=== PATIENT | female | born 1975 | race Caucasian/White ===

== ENCOUNTER → 2017-06-24 09:41 | Outpatient (CLI) | payer OTHER, SELFPAY ==
--- NOTE | 2017-06-24 09:45 | HPBI_ITS ---
MAMMOGRAPHY - BILATERAL SCREENING REASON FOR EXAM: Female, 41 years old. Routine annual screening examination. PERTINENT HISTORY: Grandmother with breast cancer. Aunt with breast cancer. TECHNIQUE: Digital bilateral breast loan (3D mammographic acquisition) in the CC and MLO projections. 2-D mediolateral oblique (MLO) and craniocaudad (CC) views of both breasts were obtained. CAD: Full Field Digital Mammography with Computer Added Detection was performed. COMPARISON: Comparison is made with prior outside examination dated June 06, 2016. FINDINGS: Breast Composition: The breasts are heterogeneously dense, which may obscure small masses. There are no dominant masses or suspicious calcifications. No other significant abnormalities are identified. There has been no significant change since the prior study. HPBI/SCREENING MAMM (CAD), BILAT IMPRESSION: Stable bilateral screening mammogram. Yearly follow-up mammogram recommended. (A) ASSESSMENT CATEGORY: BIRADS Category 1: Negative. A letter regarding these results will be sent to the patient by the facility within 30 days. Approximately 10% of breast cancers are not detected by mammography. A normal mammogram should not delay biopsy of a clinically suspicious abnormality. [id number] Electronically Signed: Jason Davila MD at 8:20 EDT Tel [phone], Service support ,
== END ==
PROVIDERS: Family Provider Family Medicine; PCP Family Medicine; Visit Provider Obstetrics & Gynecology
DX: Z12.31 Encounter for screening mammogram for malignant neoplasm of breast (principal)
CPT/HCPCS: 77063; 77067

== ENCOUNTER → 2018-03-17 10:55 | Outpatient (CLI) | payer OTHER, SELFPAY ==
[2017-10-28 10:52] VITALS: BMI 22.8
--- OUTSIDE RECORDS SUMMARY | 2018-05-11 19:50 | XMS RPT_ITS ---
:1975 Author Organization [facility] Care Team Providers Name Role Phone Kelsey Myrick Attending Unavailable Asad Joseph III Referring Unavailable Kelsey Myrick Attending Unavailable Asad Joseph III Primary Care Unavailable Rosario Vargas Attending Unavailable Asad Joseph III Referring Unavailable Reggie Sexton Attending Unavailable Reggie Sexton Referring Unavailable Asad Joseph III Primary Care Unavailable PROBLEMS PROBLEMS No Problem Records FoundPROCEDURES PROCEDURES No Procedure Records FoundRESULTS RESULTS Observed: 03/17/2018 Status: F Source: [place] CULTURE, [place] 9:[place] [facility] [place] PER REQ, PLEASE CALL RESULTS TO [phone] AND FAX RESULTS TO [phone] Culture, Throat Mixed normal throat saurabh. No Streptococcus pneumoniae, beta-hemolytic Streptococcus or Staphylococcus aureus isolated. Performed By: #### M100.1000 #### [facility] [address] [place], [place], [id number] URGENT CARE VISIT Observed: 10/28/2017 Status: F Source: [place] RE[place] 11:58 AM [facility] [place] [facility] [address] [place] [address] [address] [place], [place] [address] OFFICE VISIT Date of Service: 10/28/17 MR#: [id number] Acct: [id number] Name: OLIVER LOPEZ Renuka Rep #: [id number] : 1975 Provider: BOBBI Vargas Age/Sex: 41/F Location: [facility] Status: Signed Intake Vital Signs10/28/17 Height 5 ft 8 in 10/28/17 Weight: 150 lb 10/28/17 Body Mass Index (BMI) 22.8 10/28/17 Blood Pressure 110/64 Intake Visit Reasons: RASH ON CHEST AND BACK Chief Complaint: Rash on chest ater hot tub Wrist Closer Required: No Is patient in pain?: No Allergies Penicillins Allergy (Verified 10/28/17 10:53) Hives Sulfa (Sulfonamide Antibiotics) Allergy (Verified 10/28/17 10:53) Hives Medications Ascorbic Acid [Vitamin C] 500 mg PO DAILY 06/11/15 [History Confirmed 10/28/17] Montelukast [Singulair] 10 mg PO DAILY 06/11/15 [History Confirmed 10/28/17] Estradiol [Vivelle-Dot] 0.0375 mg pe TD DAILY #8 patch.tdsw 07/17/15 [Rx Confirmed 10/28/17] PFSH Surgical History History of hysterectomy (Acute) History of tonsillectomy (Acute) Family History Sister Thyroid cancer Aunt Breast cancer Social History Smoking Status: Never smoker alcohol intake: current alcohol intake frequency: a few times a week Alcohol type: wine HPI HPI Chief Complaint: Rash on chest ater hot tub Details: OLIVER OLPEZ, is a 41 F who presents to the office today for very itchy rash mainly on her anterior chest, though a few bumps on back as well that started after 2 days of using her neighbors hot tub. There is no drainage or crusting off the rash. No pain, just itching. She stopped using lavender lotion and sunscreen (both she had used before witthout problem), but the rash continued to worsen. She has taken Bennadryl at night for the itchig. Hot showers and heat/sunshine make it worse. No fever or chills. She states about 15 years ago she required a prescription cream for a similar rash after using a hot tub. She generally avoids them because of that. ROS Const Constitutional: No body ache, chills, fatigue, fever(s), night sweats, change in appetite, weakness, frequent falls, headache(s) or excessive sweating Eyes Eyes: No visual disturbances, light sensitivity, eye pain or change in vision ENT ENT: No ear pain, ear discharge, hearing loss, dizziness/vertigo, nasal discharge, difficulty swallowing, sore throat, neck pain or headache(s) Resp Respiratory: No cough, chest congestion, hemoptysis, shortness of breath or wheezing Cardio Cardiology: No shortness of breath, irregular heart rhythm, lightheadedness, chest pain at rest, chest pain with exertion, generalized swelling, orthopnea, palpitations or excessive sweating Gastro GI: No difficulty swallowing, abdominal pain, bloating, change in bowel habits, diarrhea, nausea/dyspepsia or vomiting Genitourinary-Female: No burning urination, urinary frequency, urinary urgency, blood in urine or Vaginal Itching Musc Musculoskeletal: No joint pain, back pain, numbness, tingling or neck pain Skin Skin: Positive for rash (see HPI); no lesions or itching Neuro Neurology: No visual disturbances, numbness, tingling, abnormal speech, confusion, unsteady gait/balance, dizziness, weakness, frequent falls, loss of vision or headache(s) Psych Psychiatric: No change in appetite, No confusion, No anxiety Endo Endocrine: No fatigue, cold intolerance, excessive sweating, flushing, heat intolerance or increased thirst/drinking Aller/Imm Allergy/Immunologic: No wheezing, itchy eyes, food intolerance, seasonal allergy symptoms or hives Kalen/Lymp Hematologic/Lymphatic: No easy bruising Exam Const General: cooperative, no acute distress, healthy appearing Nutritional Appearance: average body habitus Orientation: alert, oriented x3 HENDE Head: normal to inspection, normocephalic Ears: hearing grossly normal bilaterally, external ears normal Nose: nasal mucous membranes and turbinates normal, no nasal discharge Face and sinus: normal facial exam, sinuses nontender Mouth: oral mucosae normal, oropharynx normal, tongue normal Teeth and gingiva: dentition normal, gingiva normal Throat: posterior oropharynx normal Eyes General: appearance normal, both eyes and all related structures Eyelids: eyelids normal Conjunctivae: conjunctivae normal Sclera: sclerae normal EOM: EOM intact bilaterally Direct ophthalmoscopy: normal light reflex, no photophobia Neck Neck: normal visual inspection, full ROM, no meningeal signs, trachea midline, supple, no lymphadenopathy Neck mass: No Thyroid: thyroid normal Carotids: no bruits Lymphatic: no lymphadenopathy noted Chest Chest palpation AND inspection: normal inspection of the chest Resp Effort AND Inspection: normal respiratory effort, able to speak in complete sentences, symmetric chest movement, no audible wheezes, no cough, not labored, no respiratory distress Auscultation: Bilateral: Clear to Auscultation Cardio Rate: regular rate Rhythm: regular rhythm Heart Sounds: S1 normal, S2 normal GI Inspection: normal to inspection Auscultation: normal bowel sounds Palpation: soft, no hepatosplenomegaly, no pulsatile masses, other (no rash on abdomen) Musc Musculoskeletal: No joint tenderness Skin General: other Rashes: rashes noted (papular rash in follicular distribution noted upperr and mid anterior chest) Other: No crusting or drainage from rash. 5 or 6 erythematous papules noted on her back which she states the back has markedly improved, but the anterior chest keeps worsening. Neuro General: alert, oriented x3, moves all extremities Speech: speech normal Extrem General: normal to inspection Psych Appearance: grossly normal, well kempt Mental Status: mental status grossly normal Affect: normal affect Speech and Movement: speech and movement normal Attitude: cooperative Thought Process: normal Thought Content: normal Judgment: judgment good Assessment AND Plan Problems 1. Hot tub folliculitis L73.8 Plan Bactroban called to [facility] to apply bid x 10 days. F/u with PCP if symptoms persist. Coding Level of Care Code Off vis,new,level 3 Diagnoses Hot tub folliculitis L73.8 10/28/17 1158 <Electronically signed by Rosario MARTINES> Date Rosario MARTINES Cosigner Signature: Date (if applicable) CC: SCREENING MAMM (CAD), Observed: 06/24/2017 Status: F Source: [facility] 9:[facility] AM [facility] [place] [facility] [address] [place] [address] SCREENING MAMM (CAD), [facility] MR#: [id number] Acct: [id number] Name: OLIVER LOPEZ Rep #: [id number] : 1975 F 41 From: Jason Davila MD PCP: Asad Joseph III, MD Status: REG CLI Study: SCREENING MAMM (CAD), [facility] Date of Exam: 06/24/17 Exam# [id number] Ordering Dr: Kelsey Myrick MD MAMMOGRAPHY - BILATERAL SCREENING REASON FOR EXAM: Female, 41 years old. Routine annual screening examination. PERTINENT HISTORY: Grandmother with breast cancer. Aunt with breast cancer. TECHNIQUE: Digital bilateral breast loan (3D mammographic acquisition) in the CC and MLO projections. 2-D mediolateral oblique (MLO) and craniocaudad (CC) views of both breasts were obtained. CAD: Full Field Digital Mammography with Computer Added Detection was performed. COMPARISON: Comparison is made with prior outside examination dated June 06, 2016. FINDINGS: Breast Composition: The breasts are heterogeneously dense, which may obscure small masses. There are no dominant masses or suspicious calcifications. No other significant abnormalities are identified. There has been no significant change since the prior study. HPBI/SCREENING MAMM (CAD), BILAT IMPRESSION: Stable bilateral screening mammogram. Yearly follow-up mammogram recommended. (A) ASSESSMENT CATEGORY: BIRADS Category 1: Negative. A letter regarding these results will be sent to the patient by the facility within 30 days. Approximately 10% of breast cancers are not detected by mammography. A normal mammogram should not delay biopsy of a clinically suspicious abnormality. [id number] Electronically Signed: Jason Davila MD at 8:20 EDT Tel [phone], Service support , CC: Asad Joseph III, MD; Kelsey Myrick MD Retail Marketing Specialist: Signed ALLERGIES ALLERGIES DATE TYPE / CODE NAME / CODE REACTION SEVERITY SOURCE 04/02/2018 Drug Penicillins/F Hives Unknown [facility] Allergy/4160 [id number](RXN Hospital 18916(SNOMED ORM) Repository CT) 04/02/[address] [facility] Allergy/4160 (Sulfonamide Hospital 00360(SNOMED Antibiotics)/ Repository CT) [id number](RX NORM) ENCOUNTERS ENCOUNTERS ADMIT/DISCHARGE ACCOUNT ADMITTING ENCOUNTER LOCATION SOURCE NUMBER CLASS 04/02/2018/ [id number] Ambulatory BMSBuilding:B [facility] 8 8 [facility] Repository 03/17/2018 [id number] Ambulatory [place] 0 [facility] ing:[facility]SPEC Repository 10/28/2017/ [id number] Ambulatory BMSBuilding:B [place] 8 4 [facility] Repository 06/24/2017 [id number] Ambulatory [place] 4 [facility] ing:BI Repository PAYERS PAYERS ENCOUNTER GUARANTOR PAYER SUBSCRIBER SOURCE 04/02/2018 Oliver A Primary Oliver A [place] [id number] Insurance:MEDICAL ShriverDOB: [facility] [id number] Number: Repository [id number]: 330 [id number] [phone] () Date:6742-12-98VW [address] [address]BB: 04/02/2018 Secondary NOT GIVENUNK [place] Insurance:SELF PAY [facility] Number: Effective Repository Date:2018-04-02 03/17/2018 Oliver A Primary Oliver A [place] [id number] Insurance:MEDICAL ShriverDOB: [facility] [id number] Number: Repository [id number]: 330 [id number] [phone] () Date:[id number] [place] [id number]: 03/17/2018 Secondary NOT GIVENUNK [place] Insurance:SELF PAY [facility] Number: Effective Repository Date:2018-03-17 10/28/2017 Oliver A Primary Oliver A [place] [id number] Insurance:MEDICAL ShriverDOB: [facility] [id number], [place] Number: Repository [id number]: 330 [id number] [phone] () Date:[id number] [address] [address]RI: 10/28/2017 Secondary NOT GIVENUNK [place] Insurance:SELF PAY [facility] Number: Effective Repository Date:2017-10-28 06/24/2017 Oliver A Primary Oliver A [place] [id number] Insurance:MEDICAL ShriverDOB: [facility] [id number] Number: Repository [id number]: [phone] [id number] [phone] () Date:3555-42-71[address], [place] [address]TG: 06/24/2017 Secondary NOT GIVENUNK [place] Insurance[facility]LF [facility]Y [facility]: Effective Repository Date:2017-06-08
== END ==
PROVIDERS: Family Provider Family Medicine; PCP Family Medicine; Referring Provider Otolaryngology Otolaryngology/Facial Plastic Surgery; Visit Provider Otolaryngology Otolaryngology/Facial Plastic Surgery
DX: J02.9 Acute pharyngitis, unspecified (principal)
CPT/HCPCS: 87070

== ENCOUNTER → 2018-08-02 12:31 | Outpatient (CLI) | payer OTHER, SELFPAY ==
[2018-04-07 03:16] VITALS: BMI 22.8
--- NOTE | 2018-08-02 12:56 | BI_ITS ---
MAMMOGRAPHY - BILATERAL SCREENING REASON FOR EXAM: Female, 42 years old. Routine annual screening examination. PERTINENT HISTORY: Grandmother with breast cancer. Aunt with breast cancer. TECHNIQUE: Digital bilateral breast adithya (3D mammographic acquisition) in the CC and MLO projections. 2-D mediolateral oblique (MLO) and craniocaudad (CC) views of both breasts were obtained. CAD: Full Field Digital Mammography with Computer Added Detection was performed. COMPARISON: Comparison is made with prior study dated June 24, 2017 and June 06, 2016. FINDINGS: Breast Composition: The breasts are heterogeneously dense, which may obscure small masses. There are no dominant masses or suspicious calcifications. No other significant abnormalities are identified. There has been no significant change since the prior study. BI/SCREEN MAMM (CAD) W/ADITHYA BILAT IMPRESSION: Stable bilateral screening mammogram. Yearly follow-up mammogram recommended. (A) ASSESSMENT CATEGORY: BIRADS Category 1: Negative. A letter regarding these results will be sent to the patient by the facility within 30 days. Approximately 10% of breast cancers are not detected by mammography. A normal mammogram should not delay biopsy of a clinically suspicious abnormality. [id number] Electronically Signed: Jason Davila, at 15:02 EDT , Service support ,
== END ==
PROVIDERS: Family Provider Family Medicine; PCP Family Medicine; Referring Provider Obstetrics & Gynecology; Visit Provider Obstetrics & Gynecology
DX: Z12.31 Encounter for screening mammogram for malignant neoplasm of breast (principal)
CPT/HCPCS: 77063; 77067

== ENCOUNTER → 2019-08-07 08:01 | Outpatient (CLI) | payer OTHER, SELFPAY ==
[2018-04-07 03:16] VITALS: BMI 22.8
--- NOTE | 2019-08-07 08:03 | BI_ITS ---
MAMMOGRAPHY - BILATERAL SCREENING REASON FOR EXAM: Female, 43 years old. Routine annual screening examination. PERTINENT HISTORY: Grandmother with breast cancer. Aunt with breast cancer. TECHNIQUE: Digital bilateral breast adithya (3D mammographic acquisition) in the CC and MLO projections. 2-D mediolateral oblique (MLO) and craniocaudad (CC) views of both breasts were obtained. CAD: Full Field Digital Mammography with Computer Added Detection was performed. COMPARISON: Comparison is made with prior examination dated August 02, 2018 and June 24, 2017. FINDINGS: Breast Composition: The breasts are heterogeneously dense, which may obscure small masses. There are no dominant masses or suspicious calcifications. No other significant abnormalities are identified. There has been no significant change since the prior study. BI/SCREEN MAMM (CAD) W/ADITHYA BILAT IMPRESSION: Stable bilateral screening mammogram. Yearly follow-up mammogram recommended. (A) ASSESSMENT CATEGORY: BIRADS Category 1: Negative. A letter regarding these results will be sent to the patient by the facility within 30 days. Approximately 10% of breast cancers are not detected by mammography. A normal mammogram should not delay biopsy of a clinically suspicious abnormality. [id number] Electronically Signed: Jason Davila, at 11:21 EDT , Service support ,
== END ==
PROVIDERS: Family Provider Family Medicine; PCP Family Medicine; Referring Provider Obstetrics & Gynecology; Visit Provider Obstetrics & Gynecology
DX: Z12.31 Encounter for screening mammogram for malignant neoplasm of breast (principal)
CPT/HCPCS: 77063; 77067

== ENCOUNTER → 2019-08-24 09:40 | Outpatient (CLI) | payer OTHER, SELFPAY ==
[2019-08-24 09:19] VITALS: BMI 22.8
[2019-08-24 10:56] LABS: Cholesterol 192 mg/dL (200); Glucose 79 mg/dL (74-106); High Density Lipoprotein 56 mg/dL; Triglycerides 64 mg/dL; Very Low Density Lipoprotein 13 mg/dL (5-40)
== END ==
PROVIDERS: PCP Family Medicine; Referring Provider Obstetrics & Gynecology; Visit Provider Obstetrics & Gynecology
DX: Z13.1 Encounter for screening for diabetes mellitus (principal); Z13.21 Encounter for screening for nutritional disorder; Z13.220 Encounter for screening for lipoid disorders
CPT/HCPCS: 36415; 80061; 82306; 82947

== ENCOUNTER → 2020-08-25 10:59 | Outpatient (CLI) | payer OTHER, SELFPAY ==
[2019-12-27 16:18] VITALS: BMI 22.8
--- NOTE | 2020-08-25 11:01 | BI_ITS ---
MAMMOGRAPHY - BILATERAL SCREENING REASON FOR EXAM: Female, 44 years old. Routine annual screening examination. PERTINENT HISTORY: Grandmother with breast cancer. Aunt with breast cancer. TECHNIQUE: Digital bilateral breast adithya (3D mammographic acquisition) in the CC and MLO projections. 2-D mediolateral oblique (MLO) and craniocaudad (CC) views of both breasts were obtained. CAD: Full Field Digital Mammography with Computer Added Detection was performed. COMPARISON: Comparison is made with prior study dated 08/07/2019 and 08/02/2018. FINDINGS: Breast Composition: The breasts are heterogeneously dense, which may obscure small masses. There are no dominant masses or suspicious calcifications. No other significant abnormalities are identified. There has been no significant change since the prior study. BI/SCRN MAMM (CAD)W/ADITHYA BILAT IMPRESSION: Stable bilateral screening mammogram. Yearly follow-up mammogram recommended. (A) ASSESSMENT CATEGORY: BIRADS Category 1: Negative. A letter regarding these results will be sent to the patient by the facility within 30 days. Approximately 10% of breast cancers are not detected by mammography. A normal mammogram should not delay biopsy of a clinically suspicious abnormality. [id number] Electronically Signed: Jason Davila MD at 12:39 EDT , Service support ,
== END ==
PROVIDERS: PCP Family Medicine; Referring Provider Obstetrics & Gynecology; Visit Provider Obstetrics & Gynecology
DX: Z12.31 Encounter for screening mammogram for malignant neoplasm of breast (principal)
CPT/HCPCS: 77063; 77067

== ENCOUNTER → 2020-11-10 14:35 | Outpatient (CLI) | payer OTHER, SELFPAY ==
[2020-11-10 13:31] VITALS: BMI 23.5
[2020-11-10 15:19] LABS: Absolute Lymphocyte Count 2.29 X10^3/uL (0.83-4.51); Absolute Neutrophil Count 2.6 X10^3/uL (2.0-7.7); Basophil# 0.05 X10^3/uL; Basophil% 0.9 % (0-1); Eosinophil# 0.05 X10^3/uL; Eosinophils% 0.9 % (0-5); Hematocrit 43.8 % (37-47); Hemoglobin 14.9 g/dL (12.0-15.0); Lymphocyte # 2.29 X10^3/ul (0.83-4.51); Lymphocyte % 41.3 % (19-41); Mean Corpuscular Hgb 28.8 pg (27.0-32.0); Mean Corpuscular Volume 84.7 fL (81-99); Mean Platelet Vol. 9.9 fl (6.2-12.0); Monocyte# 0.52 X10^3/uL; Monocyte% 9.4 % (0-10); NRBC Flagged by Analyzer 0 % (0-5); Neutrophil # 2.63 X10^3/uL (2.7-7.7); Neutrophil % 47.3 % (47-70); Platelet Count 189 K/mm3 (150-450); RBC Distribution Width CV 12.4 % (11.6-14.6); RBC Distribution Width SD 37.6 fl (35.1-43.9); Red Blood Count 5.17 M/mm3 (4.2-5.4); White Blood Count 5.6 K/mm3 (4.4-11.0)
[2020-11-10 15:42] LABS: ALB/GLOB Ratio 1.1 RATIO (0.9-2.4); AST(SGOT) 29 U/L (15-37); Alanine Aminotransfer ALT/SGPT 47 U/L (13-56); Albumin, Serum 4.2 g/dL (3.2-5.0); Alkaline Phosphatase 61 U/L (45-117); Anion Gap 6 (5-15); BUN 14 mg/dL (7-18); Chloride 104 mmol/L (98-107); Cholesterol 220 mg/dL (200); Creatinine, Serum 0.64 mg/dL (0.55-1.02); EST Glomerular Filtration Rate 107 mL/min (>60); Est Glom Filt Rate - Afr Amer 129 mL/min (>60); Globulin 3.7 g/dL (2.2-4.2); Glucose 79 mg/dL (74-106); High Density Lipoprotein 61 mg/dL; Potassium 3.6 mmol/L (3.5-5.1); Protein, Total 7.9 g/dL (6.4-8.2); Sodium Level 139 mmol/L (136-145); Triglycerides 98 mg/dL; Very Low Density Lipoprotein 20 mg/dL (5-40)
== END ==
PROVIDERS: PCP Internal Medicine; Referring Provider Internal Medicine; Visit Provider Internal Medicine
DX: Z00.00 Encounter for general adult medical examination without abnormal findings (principal); I10 Essential (primary) hypertension
CPT/HCPCS: 36415; 80053; 80061; 85025

== ENCOUNTER 2021-07-12 09:52 | Day surgery (SDC) | payer OTHER, SELFPAY ==
[2021-07-12 10:23] VITALS: BP 112/74; PULSE 57; RESP 16; TEMP 36.9; O2SAT 99; BMI 23.8
[2021-07-12] MEDS: Lactated Ringers 1,000 ML 15 ML IV (10:35)
--- NOTE | 2021-07-12 11:47 | PCM.HP.BLA ---
History and Physical Date of Admission: 07/12/21 45 F who presents to have a screening colonoscopy. She has never had a colonoscopy. And she is not have any abdominal pain or constipation. She has no complications from her previous diagnosis and treatment. She does not have any family history colon cancer. She is not having abdominal pain, nausea, vomiting or diarrhea at this time. She denies any chest pain or shortness of breath. Overall she is in very good health. Past medical history: Hypertension Past surgical history: negative Allergies: Penicillin and Sulfa Social history negative alcohol and drugs ROS Const Constitutional: No body ache, excessive sweating, fatigue, fever(s) or headache(s) Eyes Eyes: No change in vision, dry eyes, eye pain or Light sensitivity ENT ENT: No abnormal hearing, tinnitus, dizziness/vertigo, headache(s), dry mouth, lip swelling, neck pain or sore throat Resp Respiratory: No cough, excessive phlegm production, shortness of breath or pain with cough Cardio Cardiology: No chest pain at rest, leg pain with exertion, excessive sweating, generalized swelling or irregular heart rhythm Gastro GI: No abdominal pain, change in bowel habits, constipation, cramping or diarrhea Musc Musculoskeletal: No back pain, deformity, loss of height, muscle cramps, neck pain or leg pain with exertion Skin Skin: No itchy eyes Breast Breast: No change in breast shape, breast lump, breast pain or breast skin changes Neuro Neurology: No abnormal hearing, confusion, unsteady gait/balance, headache(s) or loss of vision Psych Psychiatric: No confusion Endo Endocrine: No cold intolerance, excessive sweating, fatigue, increased thirst/drinking or increased hunger Aller/Imm Allergy/Immunologic: No food intolerance, itchy eyes, lip swelling, seasonal allergy symptoms or hives Kalen/Lymp Hematologic/Lymphatic: No easy bleeding, easy bruising or enlarged lymph nodes Exam Const General: cooperative, comfortable and no acute distress Orientation: alert, awake and oriented x3 HENMT Head: normal to inspection, normocephalic and atraumatic Ears: hearing grossly normal bilaterally Neck Neck: normal visual inspection, full ROM, no lymphadenopathy and supple Neck mass: No Thyroid: thyroid normal Resp Effort & Inspection: normal respiratory effort and able to speak in complete sentences Auscultation: Bilateral: Clear to Auscultation Cardio Rate: regular rate Rhythm: regular rhythm Heart Sounds: S1 normal and S2 normal GI Palpation: soft (Nontender, no palpable organomegaly) Neuro General: patient alert, patient awake, patient oriented x3, moves all extremities and CN's II-XI intact bilaterally Extrem General: no clubbing, cyanosis or edema Psych Appearance: grossly normal Mental Status: mental status grossly normal Mood: congruent mood Affect: normal affect Assessment and Plan Colon cancer screening: She will undergo screening colonoscopy. She was explained alternatives, risk, benefits including not withstanding bleeding, infection, sepsis, perforation, need for emergent surgery . She will have an ASA of 1.
[2021-07-12 12:20] VITALS: BP 112/67; BP 112/74; PULSE 56; RESP 14; TEMP 36.8; O2SAT 100
--- NOTE | 2021-07-12 12:22 | OP.CCLET_ITS ---
01/12/2022 Laura Boateng MD [address] [place] [address] [place] [address] Re : Colonoscopy procedure for [facility] Dear Dr. Boateng This procedure was performed on Monday, July 12, 2021. My impressions and recommendations are as follows: Impressions : - The entire examined colon is normal. - The examination was otherwise normal on direct and retroflexion views. - No specimens collected. Recommendations : - Discharge patient to home. - Resume previous diet. - Continue present medications. - Repeat colonoscopy in 10 years for screening purposes. My findings are described in the full procedure note, which is enclosed. If I can be of further assistance, please feel free to contact me at . Sincerely, Dada Friend, 07/12/2021 12:21:05 PM This report has been signed electronically.
--- NOTE | 2021-07-12 12:22 | OP.COLON_ITS ---
Patient Name: Terri Dickson Procedure Date: 07/12/2021 11:49 AM Date of : 1975 Age: 45 Procedure: Colonoscopy Indications: Screening for colorectal malignant neoplasm Providers: Dada Muller DO Medicines: See the Anesthesia note for documentation of the administered medications Patient Profile: This is a 45 year old female. Refer to note in patient chart for documentation of history and physical. Last Colonoscopy: none. The patient's first colonoscopy is today. Complications: No immediate complications. Procedure: Pre-Anesthesia Assessment: - Prior to the procedure, a History and Physical was performed, and patient medications and allergies were reviewed. The patient is competent. The risks and benefits of the procedure and the sedation options and risks were discussed with the patient. All questions were answered and informed consent was obtained. Patient identification and proposed procedure were verified by the physician in the pre-procedure area. Mental Status Examination: alert and oriented. Airway Examination: normal oropharyngeal airway and neck mobility. Respiratory Examination: clear to auscultation. CV Examination: normal. Prophylactic Antibiotics: The patient does not require prophylactic antibiotics. Prior Anticoagulants: The patient has taken no previous anticoagulant or antiplatelet agents. After reviewing the risks and benefits, the patient was deemed in satisfactory condition to undergo the procedure. The anesthesia plan was to use moderate sedation / analgesia (conscious sedation). Immediately prior to administration of medications, the patient was re-assessed for adequacy to receive sedatives. The heart rate, respiratory rate, oxygen saturations, blood pressure, adequacy of pulmonary ventilation, and response to care were monitored throughout the procedure. The physical status of the patient was re-assessed after the procedure. After I obtained informed consent, the scope was passed under direct vision. Throughout the procedure, the patient's blood pressure, pulse, and oxygen saturations were monitored continuously. The Colonoscope was introduced through the anus and advanced to the cecum, identified by the appendiceal orifice, ileocecal valve and palpation. The colonoscopy was performed without difficulty. The patient tolerated the procedure well. The quality of the bowel preparation was good. Moderate Sedation: Moderate (conscious) sedation was administered by the endoscopy nurse and supervised by the endoscopist. The patient's oxygen saturation, heart rate, blood pressure and response to care were monitored. Total physician intraservice time was 15 minutes. Scope In: 11:58:35 AM Scope Withdrawal Time 0 hours 12 minutes 50 seconds Scope Out: 12:17:02 PM Total Procedure Duration Time 0 hours 18 minutes 27 seconds Findings: The perianal and digital rectal examinations were normal. The colon (entire examined portion) appeared normal. The exam was otherwise without abnormality on direct and retroflexion views. Impression: - The entire examined colon is normal. - The examination was otherwise normal on direct and retroflexion views. - No specimens collected. Recommendation: - Discharge patient to home. - Resume previous diet. - Continue present medications. - Repeat colonoscopy in 10 years for screening purposes. Procedure Code(s): --- Professional --- G0121, Colorectal cancer screening; colonoscopy on individual not meeting criteria for high risk G0500, Moderate sedation services provided by the same physician or other qualified health acute care physician performing a gastrointestinal endoscopic service that sedation supports, requiring the presence of an independent trained observer to assist in the monitoring of the patient's level of consciousness and physiological status; initial 15 minutes of intra-service time; patient age 5 years or older (additional time may be reported with 90233, as appropriate) CPT copyright 2017 [employer]. All rights reserved. The codes documented in this report are preliminary and upon rehab rn review may be revised to meet current compliance requirements. Dada Muller DO 07/12/2021 12:21:05 PM This report has been signed electronically. Number of Addenda: 1 Note Initiated On: 07/12/2021 11:49 AM Addendum Number: 1 Addendum Date: 01/12/2022 6:18:35 AM MAC was used as sedation for this procedure. Dada Muller DO 01/12/2022 6:18:40 AM This report has been signed electronically.
[2021-07-12 12:25] VITALS: BP 107/62; BP 112/74; PULSE 56; RESP 14; O2SAT 100
[2021-07-12 12:30] VITALS: BP 111/62; BP 112/74; PULSE 50; RESP 14; O2SAT 100
[2021-07-12 12:37] VITALS: BP 111/71; BP 112/74; PULSE 51; RESP 14; TEMP 36.7; O2SAT 100
[2021-07-12 12:48] VITALS: BP 112/74
== END 2021-07-12 23:59 | disposition home or self-care (01) ==
LOC: EN 09:54 → AC 09:55
PROVIDERS: PCP Internal Medicine; Referring Provider Internal Medicine; Visit Provider Internal Medicine Gastroenterology
PROC: 0DJD8ZZ Inspection of Lower Intestinal Tract, Via Natural or Artificial Opening Endoscopic (ICD-10-PCS; CPT 45378; principal; 2021-07-12 10:55)
DX: Z12.11 Encounter for screening for malignant neoplasm of colon (principal); I10 Essential (primary) hypertension; Z79.899 Other long term (current) drug therapy
CPT/HCPCS: 45378; J7120

== ENCOUNTER → 2021-09-02 | Outpatient (CLI) | payer OTHER, SELFPAY ==
[2020-08-25 11:43] VITALS: BMI 22.8
--- NOTE | 2021-09-02 10:58 | BI_ITS ---
MAMMOGRAPHY - BILATERAL SCREENING REASON FOR EXAM: Female, 45 years old. Routine annual screening examination. PERTINENT HISTORY: Grandmother with breast cancer. Aunt with breast cancer. TECHNIQUE: Digital bilateral breast adithya (3D mammographic acquisition) in the CC and MLO projections. 2-D mediolateral oblique (MLO) and craniocaudad (CC) views of both breasts were obtained. CAD: Full Field Digital Mammography with Computer Added Detection was performed. COMPARISON: Comparison is made with prior study 08/25/2020 and 08/07/2019. FINDINGS: Breast Composition: The breasts are heterogeneously dense, which may obscure small masses. There are no dominant masses or suspicious calcifications. Stable small benign-appearing bilateral axillary lymph nodes. No other significant abnormalities are identified. There has been no significant change since the prior study. BI/SCRN MAMM (CAD)W/ADITHYA BILAT IMPRESSION: Stable bilateral screening mammogram. Yearly follow-up mammogram recommended. (A) ASSESSMENT CATEGORY: BIRADS Category 2: Benign. A letter regarding these results will be sent to the patient by the facility within 30 days. Approximately 10% of breast cancers are not detected by mammography. A normal mammogram should not delay biopsy of a clinically suspicious abnormality. [id number] Electronically Signed: Jason Davila MD at 12:24 EDT ,
== END | disposition home or self-care (01) ==
LOC: OPBI 10:55
PROVIDERS: PCP Internal Medicine; Visit Provider Obstetrics & Gynecology
DX: Z12.31 Encounter for screening mammogram for malignant neoplasm of breast (principal)
CPT/HCPCS: 77063; 77067

== ENCOUNTER → 2021-11-03 | Outpatient (CLI) | payer OTHER, SELFPAY ==
[2021-11-03 12:13] LABS: Absolute Lymphocyte Count 1.96 X10^3/uL (0.83-4.51); Absolute Neutrophil Count 1.5 X10^3/uL (2.0-7.7); Basophil# 0.05 X10^3/uL; Basophil% 1.3 % (0-1); Eosinophil# 0.09 X10^3/uL; Eosinophils% 2.3 % (0-5); Hematocrit 42.3 % (37-47); Lymphocyte # 1.96 X10^3/ul (0.83-4.51); Lymphocyte % 50.3 % (19-41); Mean Corp Hgb Conc 33.1 g/dL (32-36); Mean Corpuscular Hgb 28.9 pg (27.0-32.0); Mean Corpuscular Volume 87.4 fL (81-99); Mean Platelet Vol. 10.3 fl (6.2-12.0); Monocyte% 7.7 % (0-10); NRBC Flagged by Analyzer 0 % (0-5); Neutrophil % 38.4 % (47-70); Platelet Count 151 K/mm3 (150-450); RBC Distribution Width CV 12.7 % (11.6-14.6); RBC Distribution Width SD 40.4 fl (35.1-43.9); Red Blood Count 4.84 M/mm3 (4.2-5.4); White Blood Count 3.9 K/mm3 (4.4-11.0)
[2021-11-03 12:55] LABS: ALB/GLOB Ratio 1.1 RATIO (0.9-2.4); AST(SGOT) 15 U/L (15-37); Alanine Aminotransfer ALT/SGPT 26 U/L (13-56); Albumin, Serum 3.9 g/dL (3.2-5.0); Alkaline Phosphatase 62 U/L (45-117); Anion Gap 3 (5-15); BUN 13 mg/dL (7-18); BUN/Creat Ratio 16.8 RATIO (10-20); Chloride 106 mmol/L (98-107); Cholesterol 223 mg/dL (200); Creatinine, Serum 0.77 mg/dL (0.55-1.02); EST Glomerular Filtration Rate 85 mL/min (>60); Est Glom Filt Rate - Afr Amer 102 mL/min (>60); Globulin 3.5 g/dL (2.2-4.2); Glucose 82 mg/dL (74-106); High Density Lipoprotein 63 mg/dL; Potassium 3.9 mmol/L (3.5-5.1); Protein, Total 7.4 g/dL (6.4-8.2); Sodium Level 142 mmol/L (136-145); T4 Free Direct 1.01 ng/dL (0.76-1.46); Thyroid Stim Hormone (TSH) 1.93 uIU/mL (0.358-3.74); Triglycerides 60 mg/dL; Very Low Density Lipoprotein 12 mg/dL (5-40)
== END | disposition home or self-care (01) ==
LOC: BIMLAB 10:28
PROVIDERS: PCP Internal Medicine; Referring Provider Internal Medicine; Visit Provider Internal Medicine
DX: E78.5 Hyperlipidemia, unspecified (principal); Z13.29 Encounter for screening for other suspected endocrine disorder
CPT/HCPCS: 36415; 80053; 80061; 84439; 84443; 85025

== ENCOUNTER → 2022-10-04 | Outpatient (CLI) | payer OTHER, SELFPAY ==
--- NOTE | 2022-10-04 09:13 | BI_ITS ---
MAMMOGRAPHY - BILATERAL SCREENING REASON FOR EXAM: Female, 46 years old. Routine annual screening examination. PERTINENT HISTORY: Grandmother with breast cancer. Aunt with breast cancer. TECHNIQUE: Digital bilateral breast adithya (3D mammographic acquisition) in the CC and MLO projections. 2-D mediolateral oblique (MLO) and craniocaudad (CC) views of both breasts were obtained. CAD: Full Field Digital Mammography with Computer Added Detection was performed. COMPARISON: Mammogram from 09/02/2021, 08/25/2020. FINDINGS: Breast Composition: The breasts are heterogeneously dense, which may obscure small masses. There are no dominant masses or suspicious calcifications. No other significant abnormalities are identified. There has been no significant change since the prior study. BI/SCRN MAMM (CAD)W/ADITHYA BILAT IMPRESSION: Stable bilateral screening mammogram. Yearly follow-up mammogram recommended. (A) ASSESSMENT CATEGORY: BIRADS Category 1: Negative. A letter regarding these results will be sent to the patient by the facility within 30 days. Approximately 10% of breast cancers are not detected by mammography. A normal mammogram should not delay biopsy of a clinically suspicious abnormality. Electronically Signed: King Dorman DO at 15:14 EDT ,
== END | disposition home or self-care (01) ==
LOC: OPBI 09:13
PROVIDERS: PCP Internal Medicine; Referring Provider Obstetrics & Gynecology; Visit Provider Obstetrics & Gynecology
DX: Z12.31 Encounter for screening mammogram for malignant neoplasm of breast (principal); Z80.3 Family history of malignant neoplasm of breast
CPT/HCPCS: 77063; 77067

== ENCOUNTER → 2023-10-06 | Outpatient (CLI) | payer OTHER, SELFPAY ==
--- NOTE | 2023-10-06 08:32 | BI_ITS ---
MAMMOGRAPHY - BILATERAL SCREENING REASON FOR EXAM: Female, 47 years old. Routine annual screening examination. PERTINENT HISTORY: Grandmother with breast cancer. Aunt with breast cancer. TECHNIQUE: Digital bilateral breast adithya (3D mammographic acquisition) in the CC and MLO projections. 2-D mediolateral oblique (MLO) and craniocaudad (CC) views of both breasts were obtained. CAD: Full Field Digital Mammography with Computer Added Detection was performed. COMPARISON: Comparison is made with prior study dated October 04, 2022 and September 02, 2021. FINDINGS: Breast Composition: The breasts are heterogeneously dense, which may obscure small masses. There are no dominant masses or suspicious calcifications. No other significant abnormalities are identified. There has been no significant change since the prior study. BI/SCRN MAMM (CAD)W/ADITHYA BILAT IMPRESSION: Stable bilateral screening mammogram. Yearly follow-up mammogram recommended. (A) ASSESSMENT CATEGORY: BIRADS Category 1: Negative. A letter regarding these results will be sent to the patient by the facility within 30 days. Approximately 10% of breast cancers are not detected by mammography. A normal mammogram should not delay biopsy of a clinically suspicious abnormality. [id number] Electronically Signed: Jason Davila MD at 12:16 EDT ,
== END | disposition home or self-care (01) ==
LOC: OPBI 08:31
PROVIDERS: PCP Internal Medicine; Referring Provider Obstetrics & Gynecology; Visit Provider Obstetrics & Gynecology
DX: Z12.31 Encounter for screening mammogram for malignant neoplasm of breast (principal)
CPT/HCPCS: 77063; 77067

== ENCOUNTER 2024-07-01 16:00 | Outpatient (RCR) | payer OTHER, SELFPAY ==
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
== END 2024-07-01 19:00 | disposition home or self-care (01) ==
LOC: PT 16:00
PROVIDERS: PCP Internal Medicine; Referring Provider Physician Assistant; Visit Provider Physician Assistant
DX: M51.369 Other intervertebral disc degeneration, lumbar region without mention of lumbar back pain or lower extremity pain (principal); M43.16 Spondylolisthesis, lumbar region
CPT/HCPCS: 97112; 97162; 97530

== ENCOUNTER → 2024-10-07 | Outpatient (CLI) | payer OTHER, SELFPAY ==
--- NOTE | 2024-10-07 10:15 | BI_ITS ---
EXAM: SCRN MAMM (CAD)W/ADITHYA BILAT DATE: 10/07/2024 CLINICAL HISTORY: F, Age 48 y/o , SCREENING FOR BREAST CANCER BREAST CANCER RISK ASSESSMENT: Has not been calculated. TECHNIQUE: SCRN MAMM (CAD)W/ADITHYA BILAT COMPARISON: Prior exam(s) dated 10/06/2023 and 10/04/2022. FINDINGS: TISSUE DENSITY: The breast tissue is composed of scattered areas of fibroglandular density. Bilateral Breast Mammographic Findings: No suspicious masses, suspicious cluster of microcalcifications, architectural distortion or secondary signs of malignancy is identified in either breast. BI/SCRN MAMM (CAD)W/ADITHYA BILAT IMPRESSION: Unremarkable screening mammogram. OVERALL FINAL ASSESSMENT BI-RADS 1: NEGATIVE. RECOMMEND ANNUAL MAMMOGRAPHIC SCREENING. RECOMMENDATION: Routine annual follow-up in 1 Year A letter with findings and recommendations will be mailed to the patient. Reading Location: [id number]
--- OUTSIDE RECORDS SUMMARY | 2024-10-07 21:54 | XMS RPT_ITS | CCD ---
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 walking frequency: 3-4 times per week seatbelt use: always do you feel safe at home: Yes additional social history: [employer] Patient works at [employer] [facility] Chief Complaint: Annual Details: OLIVER LOPEZ, is a 48 F who presents to the office today for concerns regarding sore throat. She underwent rapid strep testing prior to evaluation that was negative. Her sore throat has been ongoing for 3 days and worsening. This is worse with drinking and eating. She states post nasal. 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 She states this feels similar to previous strep infection. ROS Const Constitutional: Positive for body ache, chills, fever(s) (100.7) and headache(s); No fatigue or change in appetite Eyes Eyes: No blurry vision, change in vision, double vision, irritation, discharge, vision loss, dry eyes, bulging eyes, floaters, visual disturbances, eye pain, Light sensitivity, spots in vision, tunnel vision or other ENT ENT: Positive for post nasal drip, headache(s), hoarseness and sore throat; No ear or mastoid pain, ear discharge, ear pressure, tinnitus, dizziness/vertigo, nosebleed/epistaxis, nasal congestion, nose pain, sinus pressure, sinus pain, nasal discharge, facial pain, dental pain, difficulty swallowing, bad breath, lip swelling, mouth lesions, mouth pain, neck pain, tongue swelling or throat swelling Resp Respiratory: No cough, change in phlegm color, chest congestion, hemoptysis, pain on inspiration, shortness of breath, pain with cough, stridor or wheezing Cardio Cardiology: No chest pain at rest, chest pain with exertion, shortness of breath, dyspnea on exertion or lightheadedness Gastro GI: No abdominal pain, change in bowel habits or difficulty swallowing Genitourinary-Female: No burning urination or urinary frequency Musc Musculoskeletal: No joint pain or neck pain Skin Skin: No rash Neuro Neurology: Positive for headache(s); No visual disturbances Psych Psychiatric: No change in appetite Endo Endocrine: No fatigue Aller/Imm Allergy/Immunologic: No lip swelling, throat swelling, tongue swelling or wheezing Exam Const General: cooperative, healthy appearing, comfortable and no acute distress Orientation: alert, awake and oriented x3 HENMT Head: normal to inspection and normocephalic Ears: hearing grossly normal bilaterally, external ears normal and TM's normal bilaterally Nose: external nose normal, nares normal and no nasal discharge Face and sinus: normal facial exam and sinuses nontender Mouth: oral mucosae normal, lip normal, tongue tiffany (more content not included)... Normal [facility] Mortgage Collector Office Visit Reporton 10-06-2023 Mortgage Collector Office Visit Report [facility] [place] [address] [place] [address] OFFICE VISIT Date of Service: 10/06/23 MR#: [id number] Acct: [id number] Name: OLIVER LOPEZ Rep #: [id number] : 1975 Provider: Dr. 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) Chief Complaint: Annual Zookeeper Required: No Is patient in pain?: No Allergies Penicillins Allergy (Verified 10/06/23 08:58) Hives Sulfa (Sulfonamide Antibiotics) Allergy (Verified 10/06/23 08:58) Hives Medications ???Medication ???Instructions ???Recorded ???Confirmed ???Type montelukast 10 mg tablet 10 mg PO DAILY 11/10/20 10/06/23 History (Singulair) estradiol 0.0375 mg/24 hr 1 patch transdermal 2XW #8 ea 10/04/22 10/06/23 Rx semiweekly transdermal patch multivitamin 1 tab PO DAILY 10/04/22 10/06/23 History Is last menstrual period known: No Post menopausal: Yes Patient : No : No PFSH Medical History Acute pharyngitis, unspecified Health care maintenance Screening for thyroid disorder Hyperlipidemia Wears glasses Non-smoker Leg cramps History of echocardiogram History of irregular heartbeat Preventative health care Colon cancer screening Hypertension Surgical History History of tonsillectomy History of hysterectomy Family History Sister Thyroid cancer Aunt Breast cancer Grandmother Breast cancer Social History Smoking Status: Never smoker alcohol intake: current alcohol intake frequency: a few times a week Alcohol type: wine details: social substance use type: does not use caffeine: Yes what type of physical activity do you participate in: walking frequency: 3-4 times per week seatbelt use: always do you feel safe at home: Yes additional social history: [employer] Patient works at [employer] History 0 Elective abortions Hx Para Spontaneous abortions Hx # Term Pregnancies Ectopic pregnancies Hx # Pregnancies Multiple births # of living children HPI Encounter for routine gynecological examination Details: OLIVER LOPEZ is a 47 year old who presents for annual exam. no concerns today Last PAP: prior to hyst. History of abnormal PAP: no Last mammogram: today, results pending History of abnormal mammogram: no Colon cancer screening: states up to date Other preventative health care screenings: followed by pcp Female Reproductive History Questions: metorrhagia: No, sexually active: Yes, dyspareunia: No and PCB: No Menopausal Symptoms: No hot flashes, No night sweats, No weight change, No mood changes, No difficulty concentrating, No sleep problems and No change in libido ROS Const Constitutional: Reports as per HPI; Denies fatigue, increased appetite, poor appetite, night sweats, weight gain or weight loss Cardio Card: Denies chest pain Resp Resp: Denies cough or dyspnea GI GI: Reports as per HPI; Denies abdominal pain, bloating, constipation, nausea or vomiting : Reports as per HPI and other; Denies difficulty voiding, dysuria, hematuria, hot flashes, nipple discharge, pelvic pain, prolapse symptoms, urinary frequency, urinary incontinence, urinary urgency, vaginal discharge, vaginal dryness, vaginal odor or vaginal pruritus Skin Skin/Breast: Denies changing lesions, breast mass, breast pain, breast skin changes or nipple discharge Psych Psych: Denies anxiety, change in libido, depression or difficulty concentrating Exam Const General: cooperative, healthy appearing, comfortable, no acute distress, well developed and well groomed HENDC Head: normal to inspection and normocephalic Ears: hearing grossly normal bilaterally and external ears normal Nose: external nose normal Face and sinus: normal facial exam Neck Neck: normal visual inspection, full ROM and no lymphadenopathy Thyroid: thyroid normal Chest Chest palpation inspection: normal inspection of the chest Breast inspection: normal inspection of the breasts and normal inspection of the axillae Breast palpation: normal palpation of the breasts, normal palpation of the axillae and no axillary lymphadenopathy Resp Effort Inspection: normal respiratory effort GI Inspection: normal to inspection and non-distended Palpation: soft, no hepatosplenomegaly and no gu (more content not included)... Normal [facility] SCRN MAMM (CAD)W/ADITHYA Hardin n 10-06-2023 SCRN MAMM (CAD)W/ADITHYA BILAT [facility] Imaging Services [address] [place], [place] [id number] SCRN MAMM (CAD)W/ADITHYA BASSETT MR#: [id number] Acct: [id number] Name: OLIVER LOPEZ Rep #: [id number] : 1975 F 47 From: Jason zabala MD PCP: Dr. Laura Boateng MD Status: REG [facility] Study: SCRN MAMM (CAD)W/ADITHYA BILAT Date of Exam: 09/16 05/10 Exam# [id number] Ordering Dr: Kelsey Myrick [id number] MAMMOGRAPHY - BILATERAL SCREENING REASON FOR EXAM: Female, 47 years old. Routine annual screening examination. PERTINENT HISTORY: Grandmother with breast cancer. Aunt with breast cancer. TECHNIQUE: Digital bilateral breast adithya (3D mammographic acquisition) in the CC and MLO projections. 2-D mediolateral oblique (MLO) and craniocaudad (CC) views of both breasts were obtained. CAD: Full Field Digital Mammography with Computer Added Detection was performed. COMPARISON: Comparison is made with prior study dated October 04, 2022 and September 02, 2021. FINDINGS: Breast Composition: The breasts are heterogeneously dense, which may obscure small masses. There are no dominant masses or suspicious calcifications. No other significant abnormalities are identified. There has been no significant change since the prior study. BI/SCRN MAMM (CAD)W/ADITHYA BILAT IMPRESSION: Stable bilateral screening mammogram. Yearly follow-up mammogram recommended. (A) ASSESSMENT CATEGORY: BIRADS Category 1: Negative. A letter regarding these results will be sent to the patient by the facility within 30 days. Approximately 10% of breast cancers are not detected by mammography. A normal mammogram should not delay biopsy of a clinically suspicious abnormality. [id number] Electronically Signed: Jason Davila MD at 12:16 EDT , CC: Dr. Laura Boateng MD; Dr. 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 Chloride [Moles/Vol] 106 mmol/L 98-107 [facility] Work Phone: Cholesterol [Mass/Vol] 223 mg/dL <200 [facility] Work Phone: Comment on above: <200 mg/dL Desirable 200-240 mg/dL Borderline >240 mg/dL High Risk Eosinophils/100 WBC (Bld) 2.3 % 0-5 [facility] Work Phone: [phone] Glucose [Mass/Vol] 82 mg/dL 74-106 [facility] Work Phone: Neutrophils (Bld) [#/Vol] 1.5 10*3/uL 2.0-7.7 [facility] Work Phone: Neutrophils/100 WBC (Bld) 38.4 % 47-70 [facility] Work Phone: Potassium [Moles/Vol] 3.9 mmol/L 3.5-5.1 [facility] Work Phone: [phone] Protein [Mass/Vol] 7.4 g/dL 6.4-8.2 [facility] Work Phone: Sodium [Moles/Vol] 142 mmol/L 136-145 [facility] Work Phone: Triglyceride [Mass/Vol] 60 mg/dL <199 [facility] Work Phone: Comment on above: The drugs N-Acetylcy steine and Metamizole may falsely depress this assay.Serum Triglycerides Reference Interval Normal <150 mg/dL Borderline high 150 - 199 mg/dL High 200 - 499 mg/dL Very High > or = 500 mg/dL WBC (Bld) [#/Vol] 3.9 10*3/uL 4.4-11.0 [facility] Work Phone: Blood erythrocytes count (nu mber/volume)on 11-03-2021 RBC (Bld) [#/Vol] 4.84 10*6/uL 4.2-5.4 [facility] Work Phone: Blood hemoglobin measurement (mass/volume)on 11-03-2021 Hemoglobin (Bld) [Mass/Vol] 14.0 g/dL 12.0-15.0 [facility] Work Phone: Blood lymphocytes/100 leukoc yteson 11-03-2021 Lymphocytes/100 WBC (Bld) 50.3 % 19-41 [facility] Work Phone: Blood monocytes/100 leukocyt eson 11-03-2021 Monocytes/100 WBC (Bld) 7.7 % 0-10 [facility] Work Phone: Blood platelet mean volumeon 11-03-2021 Platelet mean volume (Bld) [Entitic vol] 10.3 fL 6.2-12.0 [facility] Work Phone: Determination of erythrocyte mean corpuscular volume (MCV)on 11-03-2021 MCV (RBC) [Entitic vol] 87.4 fL 81-99 [facility] Work Phone: Hematocrit Auto (Bld) [Volum e fraction]on 11-03-2021 Hematocrit (Bld) [Volume fraction] 42.3 % 37-47 [facility] Work Phone: Laboratory - Chemistry and C hemistry - challengeon 11-03-2021 ALP [Catalytic activity/Vol] 62 U/L 45-117 [facility] Work Phone: [phone] ALT [Catalytic activity/Vol] 26 U/L 13-56 [facility] Work Phone: [phone] CO2 [Moles/Vol] 33.0 mmol/L 21.0-32.0 [facility] Work Phone: [phone] Free T4 [Mass/Vol] 1.01 ng/dL 0.76-1.46 [facility] Work Phone: [phone] Globulin (S) [Mass/Vol] 3.5 g/dL 2.2-4.2 [facility] Work Phone: [phone] Urea nitrogen/Creatinine [Mass ratio] 16.8 mg/mg 10-20 [facility] Work Phone: [phone] Laboratory - Hematology and Cell countson 11-03-2021 Erythrocyte distribution width (RBC) [Entitic vol] 40.4 fL 35.1-43.9 [facility] Work Phone: [phone] Erythrocyte distribution width (RBC) [Ratio] 12.7 % 11.6-14.6 [facility] Work Phone: [phone] Immature granulocytes/100 WBC (Bld) 0.000 % 0.0-0.9 [facility] Work Phone: [phone] Comment on above: IG% - Immature Granu locytes (promyelocytes, myelocytes and metamyelocytes) > 1% indicates that a LEFT SHIFT is Present. MCH (RBC) [Entitic mass] 28.9 pg 27.0-32.0 [facility] Work Phone: Nucleated RBC/100 WBC (Bld) [Ratio] 0 % 0-5 [facility] Work Phone: [phone] MCHC Auto (RBC) [Mass/Vol]on 11-03-2021 MCHC (RBC) [Mass/Vol] 33.1 g/dL 32-36 [facility] Work Phone: No Panel Informationon 11-03 Estimated GFR (MDRD) Amer 102 mL/min >60 [facility] Work Phone: Comment on above: GFR Calc Estimated GFR (MDRD) Non-Af Amer 85 mL/min >60 [facility] Work Phone: Comment on above: Non- GFR Calc Thyroid Stimulating Hormone (TSH) 1.93 uIU/mL 0.358-3.74 [facility] Work Phone: Platelets bldon 11-03-2021 Platelets (Bld) [#/Vol] 151 10*3/uL 150-450 [facility] Work Phone: Serum or plasma albumin dafne urement (mass/volume)on 11-03-2021 Albumin [Mass/Vol] 3.9 g/dL 3.2-5.0 [facility] Work Phone: [phone] Serum or plasma albumin/glob ulin mass ratioon 11-03-2021 Albumin/Globulin [Mass ratio] 1.1 {ratio} 0.9-2.4 [facility] Work Phone: Serum or plasma calcium dafne urement (mass/volume)on 11-03-2021 Calcium [Mass/Vol] 9.0 mg/dL 8.5-10.1 [facility] Work Phone: [phone] Serum or plasma cholesterol in HDL measurement (mass/volume)on 11-03-2021 Cholesterol in HDL [Mass/Vol] 63 mg/dL >40 [facility] Work Phone: Comment on above: The drugs N-Acetylcy steine and Metamizole may falsely depress this assay. Reference Range HDL <40 mg/dL Low HDL Cholesterol HDL >or= 60 mg/dL High HDL Cholesterol Serum or plasma cholesterol in VLDL measurement (mass/volume)on 11-03-2021 Cholesterol in VLDL [Mass/Vol] 12 mg/dL 5-40 [facility] Work Phone: [phone] Serum or plasma creatinine m easurement (mass/volume)on 07-20-2022 Creatinine [Mass/Vol] 0.77 mg/dL 0.55-1.02 [facility] Work Phone: Comment on above: The validity of the calculated GFR & GFRAA in patients over 70 years has not been determined. Clinical correlation is essential. Serum or plasma low density lipoprotein (LDL) cholesterol measurement (mass/volume)on 11-03-2021 Cholesterol in LDL [Mass/Vol] 148 mg/dL 0-130 [facility] Work Phone: Serum or plasma urea nitroge n measurement (mass/volume)on 11-03-2021 Urea nitrogen [Mass/Vol] 13 mg/dL 7-18 [facility] Work Phone: Thin prep Papanicolaou smear with manual screeningon 11-03-2021 Thin prep Papanicolaou smear with manual screening 15 U/L 15-37 [facility] Work Phone: Thin prep Papanicolaou smear with manual screening 3 5-15 [facility] Work Phone: Vital Signs Date Time Vital Sign Value Performing Clinician Faci lity 10-07-2024 09:03-0400 Body height 170.[address] Laura Boateng MD Work Phone: [facility] 10-07-2024 09:00-0400 Body mass index (BMI) [Ratio] 26.9 kg/m2 Dr. Laura Boateng MD Work Phone: [facility] 10-07-2024 09:00-0400 Body weight 78.[address] Laura Boateng MD Work Phone: [facility] 10-07-2024 09:00-0400 Diastolic blood pressure 79 mm[Hg] Dr. Laura Boateng MD Work Phone: [facility] 10-07-2024 09:00-0400 Systolic blood pressure 137 mm[Hg] Dr. Laura Boateng MD Work Phone: [facility] 07-11-2024 16:40-0400 Body temperature 98.6 [degF] Dr. Laura Boateng MD Work Phone: [facility] 07-11-2024 16:40-0400 Diastolic blood pressure 80 mm[Hg] Dr. Laura Boateng MD Work Phone: [facility] 07-11-2024 16:40-0400 Heart rate 68 /min Dr. Laura Boateng MD Work Phone: [facility] 07-11-2024 16:40-0400 SaO2% (BldA) [Mass fraction] 99 % Dr. Laura Boateng MD Work Phone: [facility] 07-11-2024 16:40-0400 Systolic blood pressure 132 mm[Hg] Dr. Laura Boateng MD Work Phone: [facility] 10-04-2022 09:41-0400 Body height 170.[address] Laura Boateng Work Phone: [facility] 10-04-2022 09:41-0400 Body mass index (BMI) [Ratio] 25.7 kg/m2 Dr. Laura Boateng Work Phone: [facility] 10-04-2022 09:41-0400 Body weight 74.[address] Laura Boateng Work Phone: [facility] 10-04-2022 09:41-0400 Diastolic blood pressure 66 mm[Hg] Dr. Laura Boateng Work Phone: [facility] 10-04-2022 09:41-0400 Systolic blood pressure 108 mm[Hg] Dr. Laura Boateng Work Phone: [facility] 09-05-2022 16:15-0400 Body temperature 97.7 [degF] Dr. Laura Boateng Work Phone: [facility] 09-05-2022 16:15-0400 Diastolic blood pressure 64 mm[Hg] Dr. Laura Boateng Work Phone: [facility] 09-05-2022 16:15-0400 Heart rate 87 /min Dr. Laura Boateng Work Phone: [facility] 09-05-2022 16:15-0400 Respiratory rate 14 /min Dr. Laura Boateng Work Phone: [facility] 09-05-2022 16:15-0400 SaO2% (BldA) [Mass fraction] 98 % Dr. Laura Boateng Work Phone: [facility] 09-05-2022 16:15-0400 Systolic blood pressure 112 mm[Hg] Dr. Laura Boateng Work Phone: [facility] 11-03-2021 10:00-0400 Body height 170.[address] Laura Boateng Work Phone: [facility] Work Phone: 11-03-2021 10:00-0400 Body mass index (BMI) [Ratio] 24.7 kg/m2 Dr. Laura Boateng Work Phone: [facility] Work Phone: 11-03-2021 10:00-0400 Body temperature 98 [degF] Dr. Laura Boateng Work Phone: [facility] Work Phone: 11-03-2021 10:00-0400 Body weight 71.[address] Laura Boateng Work Phone: [facility] Work Phone: 11-03-2021 10:00-0400 Diastolic blood pressure 86 mm[Hg] Dr. Laura Boateng Work Phone: [facility] Work Phone: 11-03-2021 10:00-0400 Heart rate 60 /min Dr. Laura Boateng Work Phone: [facility] Work Phone: 11-03-2021 10:00-0400 Respiratory rate 16 /min Dr. Laura Boateng Work Phone: [facility] Work Phone: 11-03-2021 10:00-0400 SaO2% (BldA) [Mass fraction] 97 % Dr. Laura Boateng Work Phone: [facility] Work Phone: 11-03-2021 10:00-0400 Systolic blood pressure 110 mm[Hg] Dr. Laura Boateng Work Phone: [facility] Work Phone: 09-30-2021 10:56-0400 Body mass index (BMI) [Ratio] 24.7 kg/m2 Dr. Laura Boateng Work Phone: [facility] Work Phone: 09-30-2021 10:56-0400 Body weight 71.[address] Laura Boateng Work Phone: [facility] Work Phone: 09-30-2021 10:56-0400 Diastolic blood pressure 82 mm[Hg] Dr. Laura Boateng Work Phone: [facility] Work Phone: 09-30-2021 10:56-0400 Systolic blood pressure 110 mm[Hg] Dr. Laura Boateng Work Phone: [facility] Work Phone: 07-12-2021 12:37-0400 Body temperature 98.1 [degF] Dr. Laura Boateng Work Phone: [facility] Work Phone: 07-12-2021 12:37-0400 Diastolic blood pressure 71 mm[Hg] Dr. Laura Boateng Work Phone: [facility] Work Phone: 07-12-2021 12:37-0400 Heart rate 51 /min Dr. Laura Boateng Work Phone: [facility] Work Phone: 07-12-2021 12:37-0400 Respiratory rate 14 /min Dr. Laura Boateng Work Phone: [facility] Work Phone: 07-12-2021 12:37-0400 SaO2% (BldA) [Mass fraction] 100 % Dr. Laura Boateng Work Phone: [facility] Work Phone: 07-12-2021 12:37-0400 Systolic blood pressure 111 mm[Hg] Dr. Laura Boateng Work Phone: [facility] Work Phone: 07-12-2021 10:23-0400 Body height 170.[address] Laura Boateng Work Phone: [facility] Work Phone: 07-12-2021 10:23-0400 Body mass index (BMI) [Ratio] 23.8 kg/m2 Dr. Laura Boateng Work Phone: [facility] Work Phone: 07-12-2021 10:23-0400 Body weight [address] Laura Boateng Work Phone: [facility] Work Phone: 08-25-2020 11:43-0400 Body mass index (BMI) [Ratio] 22.8 kg/m2 Dr. Laura Boateng Work Phone: [facility] Work Phone: 08-25-2020 11:43-0400 Body mass index (BMI) [Ratio] 22.8 kg/m2 Dr. Laura Boateng Work Phone: [facility] Work Phone: Encounters Encounter Date Encounter Type Care Provider Facility Start: 10-07-2024 ambulatory Laura Boateng Facili ty:[facility] Start: 10-07-2024 End: 10-07-[address] Laura Boateng MD Work Phone: [facility] Work Phone: Start: 10-07-2024 End: 10-07-[address] Yaquelin Javier DO [facility] Work Phone: Start: 10-07-2024 End: 10-07-[address] Yaquelin Javier DO [facility] Start: 07-11-2024 End: 07-11-2024 Patient encounter procedure Juan [facility]ARTIN[facility] Work Phone: Start: 07-11-2024 End: 07-11-2024 ambulatory Juan MARTINES Facility:[facility] Start: 07-01-2024 ambulatory Marjorie Perez Factye lity:[facility] Start: 07-01-2024 Registered Recurring Marjorie MARTINES-[facility] Work Phone: Start: 03-24-2024 End: 03-24-2024 ambulatory Ld Potter NP Facility:[facility] Start: 10-06-2023 End: 10-06-2023 ambulatory Laura Boateng Facility:[facility] Start: 10-06-2023 End: 10-06-2023 ambulatory Laura Boateng Facility:[facility] Start: 10-04-2022 End: 10-04-[address] Laura Boateng Work Phone: [facility] Work Phone: Start: 10-04-2022 End: 10-04-[address] Laura Boateng Work Phone: [facility] Start: 09-05-2022 End: 09-05-[address] Laura Dodd Phone: [facility] Start: 11-03-[address] Laura Dodd Phone: [facility] Start: 11-03-2021 End: 11-03-2021 Encounter for general adult medical examination without abnormal findings Dr. Laura Boateng Work Phone: [facility] Start: 11-03-2021 End: 11-03-[address] Laura Dodd Phone: [facility] Start: 09-30-2021 End: 09-30-[address] Laura Dodd Phone: [facility] Start: 09-02-2021 End: 09-02-[address] Laura Dodd Phone: [facility]-Outpatient Breast Imaging Start: 07-12-2021 Non-patient / Non-visit Dr. Laura Dodd Phone: [facility] Start: 07-12-2021 End: 07-12-2021 Admission to same day surgery center Dr. Laura Dodd Phone: [facility]-Endoscopy Start: 05-27-2021 End: 05-27-[address] Laura Dodd Phone: [facility] Start: 11-10-[address] Laura Dodd Phone: [facility] Procedures Date Procedure Procedure Detail Performing Clinician Start: 10-04-2022 Screening mammography Sandi Dodd Phone: Start: 09-02-2021 Screening mammography Sandi Boateng Work Phone: Start: 07-12-[address] Alma Boateng Work Phone: Plan of Treatment Date Care Activity Detail Author Start: 10-07-2024 MG Breast - bilateral Screening [facility] Start: 07-12-2021 Colonoscopy flx dx w/collj spec when pfrmd DIAGNOSTIC COLONOSCOPY [facility] Work Phone: Glucose [Mass/volume ] in Serum or Plasma [facility] Lipid 1996 panel - Serum or Plasma [facility] Thyroid stimulating hormone measurement [facility] Vitamin D, 25-hydrox y measurement [facility]'s Care Payers Date Payer Category Payer Self-pay [id number] 2013 Unknown [id number] Unknown [id number] [id number] [id number] Unknown [id number] 2.16.8 [id number] Unknown [id number] 2.16.8 [id number] Unknown [id number] 2.16.8 [id number] Unknown [id number] 2.16.8 [id number] Unknown [id number] 2.16.8 [id number] Unknown [id number] 2.16.8 [id number] Social History Date Type Detail Facility [facility] Work Phone: Start: 07-09-2021 End: 10-04-2022 Tobacco smoking status NHIS Unknown if ever smoked [facility] Start: 1975 Sex Assigned At Female W [facility] Start: 03-24-2024 Tobacco smoking stat us NHIS Never smoked tobacco (finding) [facility] Goals Date Patient Goal Desired Activity /State Mental Status Date Assessment Result Facility 07-12-2021 Cognitive function Voice/Name [facility] Work Phone: Evaluation note 07-11-2024 Note Date & Type Note Facility 07-11-2024 Evaluation note Diagnosis Onset Date Resolution Strep pharyngitis deleted June 162024 4:30pm Encounter for routine gynecological examination noneactive October 07, 2024 8:59am [facility] Work Phone: Clinical Note 04-15-2021 Note Date & Type Note Facility 04-15-2021 Note Patient Outreach (LUZ TNAV) OLIVER LOPEZ ([id number]) 1975 F Date Time Provider Department 04/15/21 STACY ROSE During your visit today, we recorded the following information about you: Stacy Rose MA 04/15/2021 7:39 AM Signed POPULATION HEALTH NAVIGATION OUTREACH Action/FYI Upon reviewing the patient's chart, it was found in Care Everywhere that Dr. Laura Boateng with [facility] is her current PCP. PCP field has been updated. Patient had an establish care appointment on 11/10/2020 with new PCP. Contact made with patient or family member? NO Pt identified by name and : NO Outreach Outcome/Action PCP field updated Reason for Outreach Attribution: Provider Off-boarding Payer: Payor: MMO / Plan: MMO [employer] / Product Type: PPO / Care Gap Reviewed:: Reminder: Reminder note to check Health Maintenance for items below Health Maintenance items due: COVID-19 VACCINE(1) Never done DEPRESSION SCREENING Never done HEPATITIS C SCREENING Never done HIV SCREENING Never done DTAP,TDAP,TD(2 - Td or Tdap) due on 11/11/2018 LIPID SCREEN due on 2018 DIABETES SCREEN due on 2018 COLORECTAL CANCER SCREENING Never done MAMMOGRAM due on 08/06/2020 INFLUENZA(1) Never done Advanced Directives Completed: Have you ever planned for future healthcare decisions with a power of senior trial attorney, living will, or advance directives? Referrals: Message Sent to Practice: Navigation Signature: Stacy Rose MA April 15, 2021 7:31 AM Allergies As of Date: 04/15/2021 Noted Allergy Reaction PENICILLINS 03/14/2005 SULFA (SULFONAMIDE ANTIBIOTICS) 03/14/2005 Date Reviewed: 09/05/2018 Reviewed by: Sheba Ochoa Ma - Fully Assessed Reason for Visit: Population Health Navigation Outreach [3910] Cmt: PCP Offboarding Prescriptions as of 04/15/2021 - estradiol (CLIMARA) 0.0375 mg/24 hr Apply 1 Patch as directed once each week. - ibuprofen (MOTRIN) 200 mg tablet Take 200 mg by mouth every 6 hours as needed. - oxyCODONE-acetaminophen (PERCOCET) 5-325 mg tablet Take 1 tablet by mouth every 4 hours as needed for Pain. - ibuprofen (MOTRIN) 800 mg tablet Take 1 tablet by mouth every 8 hours as needed for Pain. FOR PAIN. - montelukast (SINGULAIR) 10 mg tablet Take 10 mg by mouth daily at bedtime. - ascorbic acid(VITAMIN C 500 MG TAB) Take one(1) tablet daily. 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 Author Type: Operator Assistant I Cementing Type: Progress Notes Filed: 04/15/2021 7:39 AM Note Text: POPULATION HEALTH NAVIGATION OUTREACH Action/FYI Upon reviewing the patient's chart, it was found in Care Everywhere that Dr. Laura Boateng with [facility] is her current PCP. PCP field has been updated. Patient had an establish care appointment on 11/10/2020 with new PCP. Contact made with patient or family member? NO Pt identified by name and : NO Outreach Outcome/Action PCP field updated Reason for Outreach Attribution: Provider Off-boarding Payer: Payor: MMO / Plan: MMO [employer] / Product Type: PPO / Care Gap Reviewed:: Reminder: Reminder note to check Health Maintenance for items below Health Maintenance items due: COVID-19 VACCINE(1) Never done DEPRESSION SCREENING Never done HEPATITIS C SCREENING Never done HIV SCREENING Never done DTAP,TDAP,TD(2 - Td or Tdap) due on 11/11/2018 LIPID SCREEN due on 2018 DIABETES SCREEN due on 2018 COLORECTAL CANCER SCREENING Never done MAMMOGRAM due on 08/06/2020 INFLUENZA(1) Never done Advanced Directives Completed: Have you ever planned for future healthcare decisions with a power of senior trial attorney, living will, or advance directives? Referrals: Message Sent to Practice: Navigation Signature: Stacy Rose MA April 15, 2021 7:31 AM [facility] Clinical Note 11-06-2020 Note Date & Type Note Facility 11-06-2020 Note Patient Outreach (IN TMMN) OLIVER LOPEZ ([id number]) 1975 F Date Time Provider Department 11/06/20 ASAD JOSEPH III During your visit today, we recorded the following information about you: Allergies As of Date: 11/06/2020 Noted Allergy Reaction PENICILLINS 03/14/2005 SULFA (SULFONAMIDE ANTIBIOTICS) 03/14/2005 Date Reviewed: 09/05/2018 Reviewed by: Sheba Ochoa Ma - Fully Assessed Visit Diagnosis:Encounter for screening mammogram for breast cancer [Z12.31] Order(s):[facility] SCREENING [[id number]] Order #: [id number] FUTURE Prescriptions as of 11/09/2020 - estradiol (CLIMARA) 0.0375 mg/24 hr Apply 1 Patch as directed once each week. - ibuprofen (MOTRIN) 200 mg tablet Take 200 mg by mouth every 6 hours as needed. - oxyCODONE-acetaminophen (PERCOCET) 5-325 mg tablet Take 1 tablet by mouth every 4 hours as needed for Pain. - ibuprofen (MOTRIN) 800 mg tablet Take 1 tablet by mouth every 8 hours as needed for Pain. FOR PAIN. - montelukast (SINGULAIR) 10 mg tablet Take 10 mg by mouth daily at bedtime. - ascorbic acid(VITAMIN C 500 MG TAB) Take one(1) tablet daily. as necessary Problem List As Of Date 11/06/2020 Noted Resolved LUMBAGO [M54.5] 01/09/2006 Genital Herpes [A60.00] 01/12/2009 Thrombosed external hemorrhoid [K64.5] 09/27/2011 Seasonal allergies [J30.2] 10/20/2013 Jumper's knee [M76.50] 11/05/2013 Encounter Status:Closed by WILFRID CRUZ on 11/09/20 [facility] Evaluation note Note Date & Type Note Facility Evaluation note No assessment information availa [facility] Work Phone: Evaluation note Note Date & Type Note Facility Evaluation note Diagnosis Onset Date Encounter for routine gyneco logical examination noneactive Health care maintenance acut e Screening for thyroid disorder acute Hyperlipidemia [facility] Work Phone: Evaluation note Note Date & Type Note Facility Evaluation note Diagnosis Onset Date Health care maintenance acut e Screening for thyroid disorder acute Hyperlipidemia [facility] Work Phone: Evaluation note Note Date & Type Note Facility Evaluation note Diagnosis Onset Date Acute pharyngitis, unspecified acute Encounter for routine gyneco logical examination noneactive [facility] Work Phone: Reason for referral (narrative) Note Date & Type Note Facility Reason for referral (narrative) No reason for referral information available [facility] Work Phone: Summary Purpose Family History Relationship Condition Age at Onset Recorded Date/T stacey sister Malignant neoplasm of thyroid gland Unkno wn aunt Malignant neoplasm of breast Unknown grandmother Malignant neoplasm of breast Unknown Advance Directives Advance Directive Response Recorded Date/ Time Advance Directives No July 15, 2 016 12:35pm Living Will No July 09, 2021 8:23am Power of Kiss Setter Hand No July 09 8:23am Advance Directive Response Recorded Date/ Time Advance Directives No July 15 016 11:35am Living Will No July 09, 2021 7:23am Power of Kiss Setter Hand No July 09 7:23am Advance Directive Response Recorded Date/ Time Advance Directives No March 24, 2024 9:10am Chief Complaint and Reason for Visit Chief Complaint OA SCANNING ONLY! Chief Complaint OA SCANNING ONLY! SCREENING Chief Complaint SCREENING Annual (LEARNING FACILITATOR) YEARLY F/UP Reason for Visit Encounter for routin e gynecological examination Health care maintenance Screening for thyroid disorder Hyperlipidemia Chief Complaint YEARLY F/UP Reason for Visit Health care maintena nce Screening for thyroid disorder Hyperlipidemia Chief Complaint SORE THROAT/NORRIS/CHILL S SCREENING Annual (LEARNING FACILITATOR) Reason for Visit Acute pharyngitis, u nspecified Encounter for routine gynecological examination Chief Complaint Admit Date DDD. RX HERE July 01, 2024 4:0 0pm CONCERN FOR STREP THROAT July 11 4:30pm Annual (LEARNING FACILITATOR) October 07, 2024 8:59 am Reason for Visit Admit Date Strep pharyngitis July 11, 2024 4:3 0pm Encounter for routine gynecological exam ination October 07, 2024 8:59am Additional Source Comments INFORMATION SOURCE (unrecogn ized section and content) DATE CREATED AUTHOR 07/04/2021 [facility] DATE CREATED AUTHOR AUTHOR'S ORGANIZ ATION [facility] Goals (unrecognized section and content) Goals may be documented in a n alternate sectionGoals may be documented in an alternate sectionGoals may be documented in an alternate sectionGoals may be documented in an alternate sectionGoals may be documented in an alternate section Care Teams (unrecognized sec tion and content) Team Status: Active Member Role Status Dates Dr. Asad Joseph III, MD Family Provider Active Dr. Laura Boateng MD Primary Care Provider Active Team Status: Inactive Member Role Status Dates Dr. Laura Boateng MD Primary Care Provider, Refer ring Provider Active Dr. Yaquelin Javier DO Attending Provider Activ e Team Status: Inactive Member Role Status Dates Dr. Laura Boateng MD Primary Care Provider, Refer ring Provider Active BOBBI Banks Attending Provider Active Team Status: Inactive Member Role Status Dates Dr. Laura Boateng MD Primary Care Provider Active Dr. Kelsey Myrick MD Attending Provider, Referr ing Provider Active Team Status: Active Member Role Status Dates Dr. Laura Boateng MD Primary Care Provider Active Team Status: Active Member Role Status Dates Dr. Laura Boateng MD Primary Care Provider Active Start: July 01, 2024 Marjorie Perez PA-C Attending Provider Active Start: July 01, 2024 Marjorie Perez PA-C Referring Provider Active Start: July 01, 2024 Team Status: Inactive Member Role Status Dates Dr. Laura Boateng MD Primary Care Provider Active Start: July 11, 2024 End: July 11, 2024 Dr. Laura Boateng MD Referring Provider Active Start: July 11, 2024 End: July 11, 2024 BOBBI Sanchez Attending Provider Active Sta rt: July 11, 2024 End: July 11, 2024 Team Status: Inactive Member Role Status Dates Dr. Laura Boateng MD Primary Care Provider Active Start: October 07, 2024 End: October 07, 2024 Dr. Laura Boateng MD Referring Provider Active Start: October 07, 2024 End: October 07, 2024 Dr. Yaquelin Javier DO Attending Provider Activ e Start: October 07, 2024 End: October 07, 2024 FOR RECORDS PERTAINING TO PATIENTS WHO ARE OR HAVE BEEN ENROLLED IN A CHEMICAL DEPENDENCY/SUBSTANCEABUSE PROGRAM, SOME INFORMATION MAY BE OMITTED. This clinical summary was aggregated from multiple sources. Caution should be exercised in using it in the provision of clinical care. This summary normalizes information from multiple sources, and as a consequence, information in this document may materially change the coding, format and clinical context of patient data. In addition, data may be omitted in some cases. CLINICAL DECISIONS SHOULD BE BASED ON THE PRIMARY CLINICAL RECORDS. [facility] [employer] [facility]. provides no warranty or guarantee of the accuracy or completeness of information in this document.
== END | disposition home or self-care (01) ==
LOC: OPBI 10:04
PROVIDERS: PCP Internal Medicine; Referring Provider Obstetrics & Gynecology; Visit Provider Obstetrics & Gynecology
DX: Z12.31 Encounter for screening mammogram for malignant neoplasm of breast (principal)
CPT/HCPCS: 77063; 77067

== ENCOUNTER → 2024-12-06 | Outpatient (CLI) | payer OTHER, SELFPAY ==
[2024-12-06 13:01] LABS: Cholesterol 212 mg/dL (<=200); Glucose 85 mg/dL (70-99); Low Density Lipoprotein Calc. 140 mg/dL; Triglycerides 84 mg/dL; Very Low Density Lipoprotein 17 mg/dL (5-40); Vitamin D,25 Hydroxy 46.9 ng/mL (30-100); cholesterol:hdl ratio screen 3.83
== END | disposition home or self-care (01) ==
LOC: MTLAB 10:14
PROVIDERS: PCP Internal Medicine; Referring Provider Obstetrics & Gynecology; Visit Provider Obstetrics & Gynecology
DX: Z01.419 Encounter for gynecological examination (general) (routine) without abnormal findings (principal); Z13.220 Encounter for screening for lipoid disorders; Z13.1 Encounter for screening for diabetes mellitus; Z13.29 Encounter for screening for other suspected endocrine disorder
CPT/HCPCS: 36415; 80061; 82306; 82947; 84443

== ENCOUNTER → 2024-12-30 | Outpatient (CLI) | payer OTHER, SELFPAY ==
--- NOTE | 2024-12-30 15:03 | VDLE_ITS ---
Reason For Study Reason For Study: BLE Pain RIGHT LEFT CFV is compressible, spontaneous, phasic, competent CFV is compressible, spontaneous, phasic, competent, and demonstrates normal augmentation. and demonstrates normal augmentation. FV is compressible, spontaneous, phasic, competent FV is compressible, spontaneous, phasic, competent and demonstrates normal augmentation. and demonstrates normal augmentation. POP V is compressible, spontaneous, phasic, competent POP V is compressible, spontaneous, phasic, competent and demonstrates normal augmentation. and demonstrates normal augmentation. T/P Trunk is compressible. T/P Trunk is compressible. PTV is compressible. PTV is compressible. RT PerV is compressible. LT PerV is compressible. SFJ is competent and measures 0.48 cm. SFJ is competent and measures 0.70 cm. GSV proximal thigh measures 0.36 x 0.37 cm. GSV proximal thigh measures 0.37 x 0.35 cm. GSV at knee measures 0.32 x 0.33 cm. GSV at knee measures 0.31 x 0.33 cm. GSV INCOMPETENT throughout for greater than 0.5 GSV INCOMPETENT throughout for greater than 0.5 seconds. seconds. SSV at junction is INCOMPETENT for greater than 0.5 SSV at junction is INCOMPETENT for greater than 0.5 seconds and measures 0.19 x 0.18 cm. seconds and measures 0.64 cm. SSV mid calf is competent and measures 0.29 x 0.28 SSV mid calf is competent and measures 0.34 x 0.32 cm. cm. Procedure Dilated Lt Gastrocnemius to SSV waiter/waitress formal visualized Exam performed in department. but unable to acquire reflux. Vessel is compressible. This is a venous duplex using B-mode, color flow and spectral Doppler. The exam was diagnostic. Patient was scanned in reverse Trendelenburg position during reflux assessment. VL/Venous Duplex US - Delfin Extrem Interpretation Summary Deep veins of the bilateral lower extremities are patent and compressible segme ntally. There is no evidence of bilateral lower extremity deep vein thrombosis. The bilateral great saphenous veins appea r patent and compressible segmentally. Positive for reflux in the right great saphenous vein throughout, small sapheno us vein. Positive for reflux in the left great saphenous vein throughout, small saphenou s vein. Ordering Physician: Alise Santos Referring Physician: Laura Boateng Performed By: Jaime Vallejo RVT
== END | disposition home or self-care (01) ==
LOC: CVS 15:02
PROVIDERS: PCP Internal Medicine; Referring Provider Physician Assistant; Visit Provider Physician Assistant
DX: M79.604 Pain in right leg (principal); I83.90 Asymptomatic varicose veins of unspecified lower extremity
CPT/HCPCS: 93970